=== PATIENT | female | born 1940 | race Caucasian/White ===

== ENCOUNTER 2016-09-05 06:49 | Inpatient (IN) | payer MEDICARE, OTHER ==
[2016-08-31 16:00] LABS: PROTIME (NOT ORD) 12.7 SEC (12.0-14.5)
[2016-08-31 16:01] LABS: PARTIAL THROMBO TIME 27.1 SEC (22.5-37.2)
[2016-08-31 16:03] LABS: BASOPHILS 0.5 %; BASOPHILS ABSOLUTE 0.03 10/3/uL (0.0-0.16); EOSINOPHILS ABSOLUTE 0.12 10/3/uL (0.0-0.53); HEMATOCRIT 39.6 % (36.0-48.0); HEMOGLOBIN 12.9 g/dL (12.0-16.0); IMMATURE GRANULOCYTES 0.2 %; IMMATURE GRANULOCYTES ABSOLUTE 0.01 10/3/uL (0.0-0.11); LYMPHOCYTES 23.5 %; LYMPHOCYTES ABSOLUTE 1.44 10/3/uL (0.67-4.30); MEAN CORPUS HGB CONC 32.6 g/dL (32.0-36.0); MEAN CORPUSCULAR HEMOGLOB 30.4 pg (26.0-34.0); MEAN CORPUSCULAR VOLUME 93.2 fL (80-100); MONOCYTES 10.4 %; MONOCYTES ABSOLUTE 0.64 10/3/uL (0.21-1.20); NEUTROPHILS 63.4 %; NEUTROPHILS ABSOLUTE 3.89 10/3/uL (2.02-8.40); PLATELET COUNT 250 10/3/uL (150-400); RED CELL COUNT 4.25 10/6/uL (4.0-5.6); WHITE BLOOD CELLS 6.1 10/3/uL (4.5-10.5)
[2016-08-31 16:04] LABS: MANUAL DIFF NO %
[2016-08-31 16:15] LABS: A/G RATIO 1.3 (0.7-1.9); ALBUMIN 3.9 G/DL (3.5-5.0); ALKALINE PHOSPHATASE 117 U/L (45-117); BUN (BLOOD UREA NITROGEN) 19 MG/DL (6-23); CALCIUM, SERUM 8.8 MG/DL (8.5-10.4); CEA 2.4 NG/ML; CHLORIDE, SERUM 108 MMOL/L (96-112); CO2 (CARBON DIOXIDE) 27 MMOL/L (24-34); CREATININE 0.71 MG/DL (0.55-1.02); GFR AFRICAN AMERICAN 96 ML/MIN (>=60); GFR NON AFRICAN AMERICAN 83 ML/MIN (>=60); GLUCOSE, SERUM 120 MG/DL (60-99); POTASSIUM, SERUM 3.9 MMOL/L (3.5-5.3); SGOT(AST) 20 U/L (5-40); SGPT(ALT) 24 U/L (5-65); SODIUM, SERUM 144 MMOL/L (135-148); TOTAL BILIRUBIN 0.3 MG/DL (0-1.2); TOTAL PROTEIN 6.9 G/DL (6.0-8.5)
[2016-08-31 16:17] LABS: ASCORBIC ACID (UR NOT ORDER) 20 (NEG); BILIRUBIN, URINE NEGATIVE (NEG); KETONE, URINE TRACE MG/DL (NEG); LEUKOCYTE ESTERASE(NOT OR LARGE (NEG); WBC (NOT ORDERED) (RFLEX) 64 (0-5)
--- NOTE | ~2016-09-05 | OP ---
Record Of Operation [facility] [address] [place]. [address] NAME: EBONIE BAZAN : 38 STATUS : ADM IN PAT#: [id number] AGE: 75 ADM/REG DATE : 09/05/16 MR#: [id number] REPORT SERV DATE: 09/05/16 DICTATED BY: DENISE FISHER JR. DATE: 09/05/16 REPORT STATUS : Draft TRANSCRIBED BY: MODL DATE: 09/05/16 DATE OF PROCEDURE: 09/05/2016 SURGEON: Denise Fisher M.D. WATER PURIFICATION CHEMIST: Emy Alvarez. PROCEDURE: Laparoscopic-assisted right colectomy with ileocolostomy. PREOPERATIVE DIAGNOSIS: Carcinoma of the colon. POSTOPERATIVE DIAGNOSIS: Carcinoma of the colon. ANESTHESIA: General. INDICATIONS: This patient had been found on screening colonoscopy to have neoplastic polyps in the proximal transverse colon. The more distal to this was excised and was suspicious in appearance and pathology confirmed carcinoma, incompletely resected. There was also a more proximal polyp on biopsy, it was a serrated adenoma. Exploration for resection of both areas was indicated for definitive treatment. FINDINGS: On laparoscopic exam of the abdomen, there was evidence of a very mobile right colon. There was no evidence of any peritoneal metastasis or other abnormality. There was blue ink staining of the transverse colon at the site. Colon was mobilized and then brought through a very small midline incision where an extended right colectomy was performed to encompass both of the area of the polyp. Examination of the specimen did show both ears contained within the specimen. The mesentery was somewhat attenuated but tissue was taken from the proximal ileocolic out to the colon. There was no evident adenopathy. Satisfactory stapled ileocolostomy was created. No other significant findings were encountered. DESCRIPTION OF PROCEDURE: With adequate general anesthesia, the patient was placed in a supine position. The abdomen was prepped and draped sterilely. Marcaine 0.5% was used for local infiltration. An infraumbilical incision was made. The dissection was carried down sharply through the subcutaneous tissues. The fascia and peritoneum were opened. The peritoneal cavity was entered. A balloon-tipped trocar was introduced. The abdomen was insufflated with CO2. The laparoscope was introduced with the above-noted findings. Under direct vision, a 5 mm trocar was placed in the right and the left abdomen. The LigaSure device was utilized to divide the gastrocolic omentum and the tissue at the hepatic flexure to mobilize the transverse colon and hepatic flexure region and also the right colon. Then the midline incision was enlarged slightly and this specimen was brought through the incision where sites were selected for revision of the ileum and the transverse colon with endoscopic EJ 75. The mesentery was then divided between clamps securing the major bleeders with ligatures of silk. Additionally taking some additional tissue from the proximal ileocolic area. Then a [id number] ileocolostomy was created with a EJ 75. The open end was closed with a EJ 60 and this was reinforced with sutures of 3-0 silk. Record Of Operation [address] [place]. [address] NAME: EBONIE BAZAN : 38 STATUS : ADM IN [facility]#: [id number] AGE: 75 ADM/REG DATE : 09/05/16 MR#: [id number] REPORT SERV DATE: 09/05/16 DICTATED BY: DENISE FISHER JR. DATE: 09/05/16 REPORT STATUS : Draft TRANSCRIBED BY: FROYLAN DATE: 09/05/16 Mesenteric defect was also closed with suture of 3-0 silk. The specimen was submitted to pathology as noted. Both specimens were placed back into the abdomen and then the midline incision was closed and the fascial layer with 0 PDS, subcutaneous Vicryl, and dermal Monocryl as were the other 2 trocar sites. Sterile dressings were applied. The patient left the operating room in satisfactory condition. ESTIMATED BLOOD LOSS: 10 mL. CAROLE/FROYLAN Denise Fisher Jr., M.D. / [id number] CC: Denise Fisher Jr., M.D.
--- NOTE | ~2016-09-05 | DS ---
Discharge Summary [facility] [id number] [place]. [address] NAME: EBONIE BAZAN : 38 STATUS : DIS IN PAT#: [id number] AGE: 75 ADM/REG DATE : 09/05/16 MR#: [id number] REPORT SERV DATE: 09/17/16 DICTATED BY: DENISE FISHER JR. DATE: 09/16/16 REPORT STATUS : Draft TRANSCRIBED BY: FROYLAN DATE: 09/16/16 Data Collection from hospitalization DISCHARGE DIAGNOSES: 1. Carcinoma of the colon. 2. Hypothyroidism. 3. Gastroesophageal reflux disease. 4. Osteoarthritis. 5. Former smoker. CONSULTATIONS: None. PROCEDURES PERFORMED: Laparoscopic-assisted right colectomy with ileocolostomy, 09/05/2016. PATHOLOGY: Right colon partial colectomy-invasive adenocarcinoma. Tumor site-mid transverse colon, size (maximal tumor dimension)-small residual 2 mm focus adjacent reparative changes from the previous biopsy. Histologic grade-moderately differentiated local extent-C1 tumor invades the submucosa. Lymphatic small vessel invasion-not identified. Venous large vessel invasion-not identified. Status of margins-negative lymph nodes-0/25 pericolic nodes involved (0/25). Treatment effects-no prior treatment. Tumor deposits-not identified. Perineural invasion-not identified. Histologic features of microsatellite instability-not identified. Immunohistochemistry for mismatch repair (MMR) protein: MSH2-normal expression. Positive nuclear staining. MSH6-normal expression, positive nuclear staining. MLH1-normal expiration, positive nuclear staining. PMS2-normal expression, positive nuclear staining. Comment-there was no evidence of loss of expression of mismatch, repair of proteins, and further genetic testing for Nelson syndrome was not recommended unless strong clinical suspicion persists. Macroscopic intactness of mesorectum-not applicable. Other findings- proximal transverse colon biopsy sites, she has no residual sessile serrated adenoma. Pathologic stage-1 (PT1-PN0). Additional mesenteric biopsy-0/1 node involved by tumor (0/1). DISCHARGE MEDICATIONS: Tylenol 650 mg every 8 hours as needed, Zyrtec 10 mg every day at bedtime, vitamin D 1000 units every morning, Flonase one spray nasally twice a day, Neurontin 300 mg every day at bedtime, Synthroid 75 mcg daily, Align probiotic one capsule daily, fish oil 1000 mg daily, Prilosec 20 mg twice a day, Zofran 4 mg every four to six hours as needed, Carafate 1 g before meals and at bedtime as needed, Ultram 50 mg every six hours as needed, Phazyme as instructed. CONDITION AT DISCHARGE: Stable. DISPOSITION: The patient was discharged home on a full liquid diet with activities as instructed. She would follow up with me, 09/16/2016. HOSPITAL COURSE: This is a 75-year-old female, who was found on screening colonoscopy to have neoplastic polyps in the proximal transverse colon. More distal to this was excised and was suspicious in appearance and pathology confirmed carcinoma incompletely resected. There was also a more proximal polyp on biopsy that was a serrated adenoma. Treatment options were discussed and it was elected to proceed with surgical intervention. She was Discharge Summary [address] [place]. [address] NAME: EBONIE BAZAN : 38 STATUS : DIS IN PAT#: [id number] AGE: 75 ADM/REG DATE : 09/05/16 MR#: [id number] REPORT SERV DATE: 09/17/16 DICTATED BY: DENISE FISHER JR. DATE: 09/16/16 REPORT STATUS : Draft TRANSCRIBED BY: FROYLAN DATE: 09/16/16 admitted to the hospital at this time for further evaluation and treatment. Upon admission, she was taken to the operating room, where she underwent the above-mentioned procedure. She tolerated this well and there were no complications. On postop day #1, she was stable. She was tolerating liquids. Her diet was going to be advanced. The Yoon catheter was removed. We encouraged her to increase her activity. Over the next couple of days, she continued to progress. She was tolerating full liquids. Pathology results were reviewed. Discharge planning was performed. On 09/09/2016, she was passing flatus. She remained stable. She was tolerating full liquids. Her abdomen was soft. Discharge instructions were given. Due to her improved and stable condition, she was discharged home with the above-stated instructions. Information collected by: Alejandra Be I submit the above information as my discharge summary. GUILLERMO/FROYLAN Denise Fisher Jr., M.D. / [id number] CC: Mckenna Smith Jr., M.D.
[~2016-09-05 06:49] MED LIST: 8 HOUR650 MG PO; ALIGN4 MG PO; CALTRA600D PO; CALTRAT600 PO; CELEBREX2 PO; FISH-EPA1000 MG PO; FLONASE NAS; HYDROCHLOROT12.5 MG PO; LEVOTHROID75 MCG PO; LEVOTHYROXIN75 MCG PO; LORT7 PO; LORTAB 5 PO; NEUR300 PO; NORCO1 TA2 PO; PHAZYME; PREV30 PO; PRILO PO; SUCR PO; SYN075 PO; ULTRAM50 PO; VITAMIN D1000 UNI1 PO; VITAMIN D31000 UNIT PO; ZYRTEC ALLGY10 MG PO
[2016-09-05 11:57] LABS: BASOPHILS 0.1 %; BASOPHILS ABSOLUTE 0.01 10/3/uL (0.0-0.16); EOSINOPHILS 0.1 %; EOSINOPHILS ABSOLUTE 0.01 10/3/uL (0.0-0.53); HEMATOCRIT 36.9 % (36.0-48.0); HEMOGLOBIN 12.3 g/dL (12.0-16.0); IMMATURE GRANULOCYTES 0.1 %; IMMATURE GRANULOCYTES ABSOLUTE 0.01 10/3/uL (0.0-0.11); LYMPHOCYTES 8.6 %; LYMPHOCYTES ABSOLUTE 0.73 10/3/uL (0.67-4.30); MANUAL DIFF NO %; MEAN CORPUS HGB CONC 33.3 g/dL (32.0-36.0); MEAN CORPUSCULAR HEMOGLOB 30.8 pg (26.0-34.0); MEAN CORPUSCULAR VOLUME 92.3 fL (80-100); MEAN PLATELET VOLUME 10.9 fL (9.2-13.0); MONOCYTES 1.8 %; MONOCYTES ABSOLUTE 0.15 10/3/uL (0.21-1.20); NEUTROPHILS 89.3 %; NEUTROPHILS ABSOLUTE 7.53 10/3/uL (2.02-8.40); PLATELET COUNT 202 10/3/uL (150-400); RBC DISTRIBUTION WIDTH 13.5 % (12.0-16.0); WHITE BLOOD CELLS 8.4 10/3/uL (4.5-10.5)
[2016-09-05 12:09] LABS: CALCIUM, SERUM 8.2 MG/DL (8.5-10.4); CHLORIDE, SERUM 105 MMOL/L (96-112); CO2 (CARBON DIOXIDE) 25 MMOL/L (24-34); CREATININE 0.69 MG/DL (0.55-1.02); GFR AFRICAN AMERICAN 98 ML/MIN (>=60); GFR NON AFRICAN AMERICAN 85 ML/MIN (>=60); GLUCOSE, SERUM 137 MG/DL (60-99); POTASSIUM, SERUM 3.6 MMOL/L (3.5-5.3); SODIUM, SERUM 141 MMOL/L (135-148)
[2016-09-05 12:11] LABS: BUN (BLOOD UREA NITROGEN) 15 MG/DL (6-23)
[2016-09-06 07:24] LABS: BASOPHILS 0 %; EOSINOPHILS 0 %; HEMATOCRIT 36.1 % (36.0-48.0); HEMOGLOBIN 12.2 g/dL (12.0-16.0); IMMATURE GRANULOCYTES 0.2 %; IMMATURE GRANULOCYTES ABSOLUTE 0.02 10/3/uL (0.0-0.11); MEAN CORPUS HGB CONC 33.8 g/dL (32.0-36.0); MEAN CORPUSCULAR HEMOGLOB 30.7 pg (26.0-34.0); MEAN CORPUSCULAR VOLUME 90.9 fL (80-100); MEAN PLATELET VOLUME 11.2 fL (9.2-13.0); MONOCYTES 7.1 %; MONOCYTES ABSOLUTE 0.92 10/3/uL (0.21-1.20); NEUTROPHILS 85.7 %; NEUTROPHILS ABSOLUTE 11.05 10/3/uL (2.02-8.40); PLATELET COUNT 210 10/3/uL (150-400); RBC DISTRIBUTION WIDTH 13.7 % (12.0-16.0); RED CELL COUNT 3.97 10/6/uL (4.0-5.6)
[2016-09-06 07:25] LABS: MANUAL DIFF NO %; WHITE BLOOD CELLS 12.9 10/3/uL (4.5-10.5)
[2016-09-06 07:37] LABS: BUN (BLOOD UREA NITROGEN) 14 MG/DL (6-23); CALCIUM, SERUM 8.3 MG/DL (8.5-10.4); CHLORIDE, SERUM 103 MMOL/L (96-112); CO2 (CARBON DIOXIDE) 26 MMOL/L (24-34); CREATININE 0.57 MG/DL (0.55-1.02); GFR AFRICAN AMERICAN 104 ML/MIN (>=60); GFR NON AFRICAN AMERICAN 90 ML/MIN (>=60); GLUCOSE, SERUM 134 MG/DL (60-99); SODIUM, SERUM 139 MMOL/L (135-148)
[2016-09-07 04:56] LABS: BASOPHILS 0.1 %; BASOPHILS ABSOLUTE 0.01 10/3/uL (0.0-0.16); EOSINOPHILS 0.5 %; EOSINOPHILS ABSOLUTE 0.04 10/3/uL (0.0-0.53); HEMATOCRIT 33.4 % (36.0-48.0); HEMOGLOBIN 11.1 g/dL (12.0-16.0); IMMATURE GRANULOCYTES 0.3 %; IMMATURE GRANULOCYTES ABSOLUTE 0.03 10/3/uL (0.0-0.11); LYMPHOCYTES 14.6 %; LYMPHOCYTES ABSOLUTE 1.29 10/3/uL (0.67-4.30); MANUAL DIFF NO %; MEAN CORPUS HGB CONC 33.2 g/dL (32.0-36.0); MEAN CORPUSCULAR HEMOGLOB 30.9 pg (26.0-34.0); MEAN PLATELET VOLUME 11.4 fL (9.2-13.0); MONOCYTES 7.9 %; NEUTROPHILS 76.6 %; NEUTROPHILS ABSOLUTE 6.74 10/3/uL (2.02-8.40); PLATELET COUNT 191 10/3/uL (150-400); RBC DISTRIBUTION WIDTH 13.8 % (12.0-16.0); RED CELL COUNT 3.59 10/6/uL (4.0-5.6); WHITE BLOOD CELLS 8.8 10/3/uL (4.5-10.5)
[2016-09-07 05:26] LABS: CALCIUM, SERUM 8.1 MG/DL (8.5-10.4); CHLORIDE, SERUM 107 MMOL/L (96-112); CO2 (CARBON DIOXIDE) 24 MMOL/L (24-34); CREATININE 0.54 MG/DL (0.55-1.02); GFR AFRICAN AMERICAN 106 ML/MIN (>=60); GFR NON AFRICAN AMERICAN 92 ML/MIN (>=60); GLUCOSE, SERUM 108 MG/DL (60-99); POTASSIUM, SERUM 3.9 MMOL/L (3.5-5.3); SODIUM, SERUM 140 MMOL/L (135-148)
[2016-09-07 05:29] LABS: BUN (BLOOD UREA NITROGEN) 9 MG/DL (6-23)
[2016-09-08 04:19] LABS: BASOPHILS 0.3 %; BASOPHILS ABSOLUTE 0.02 10/3/uL (0.0-0.16); EOSINOPHILS 1.7 %; EOSINOPHILS ABSOLUTE 0.13 10/3/uL (0.0-0.53); HEMOGLOBIN 12.1 g/dL (12.0-16.0); IMMATURE GRANULOCYTES 0.3 %; IMMATURE GRANULOCYTES ABSOLUTE 0.02 10/3/uL (0.0-0.11); LYMPHOCYTES 20.3 %; LYMPHOCYTES ABSOLUTE 1.56 10/3/uL (0.67-4.30); MEAN CORPUS HGB CONC 32.7 g/dL (32.0-36.0); MEAN CORPUSCULAR HEMOGLOB 30.6 pg (26.0-34.0); MEAN CORPUSCULAR VOLUME 93.4 fL (80-100); MEAN PLATELET VOLUME 11.9 fL (9.2-13.0); MONOCYTES 7.9 %; MONOCYTES ABSOLUTE 0.61 10/3/uL (0.21-1.20); NEUTROPHILS 69.5 %; NEUTROPHILS ABSOLUTE 5.35 10/3/uL (2.02-8.40); PLATELET COUNT 224 10/3/uL (150-400); RBC DISTRIBUTION WIDTH 13.7 % (12.0-16.0); RED CELL COUNT 3.96 10/6/uL (4.0-5.6); WHITE BLOOD CELLS 7.7 10/3/uL (4.5-10.5)
[2016-09-08 04:21] LABS: MANUAL DIFF NO %
[2016-09-08 04:34] LABS: BUN (BLOOD UREA NITROGEN) 7 MG/DL (6-23); CALCIUM, SERUM 8.5 MG/DL (8.5-10.4); CHLORIDE, SERUM 105 MMOL/L (96-112); CO2 (CARBON DIOXIDE) 28 MMOL/L (24-34); CREATININE 0.61 MG/DL (0.55-1.02); GFR AFRICAN AMERICAN 102 ML/MIN (>=60); GFR NON AFRICAN AMERICAN 88 ML/MIN (>=60); POTASSIUM, SERUM 3.8 MMOL/L (3.5-5.3); SODIUM, SERUM 142 MMOL/L (135-148)
[2016-09-08 04:35] LABS: GLUCOSE, SERUM 86 MG/DL (60-99)
[2016-09-09] MEDS ORDERED: ZOFRAN4 PO (09:41)
[2016-09-09] MEDS ORDERED: ULTRAM50 PO (09:41)
== END 2016-09-09 11:25 | disposition home or self-care (01) | DRG 331 ==
LOC: SDC/OF 06:49 → PACU 11:27 → 5SO 14:53
PROVIDERS: Specialist
PROC: 0D1K0Z4 Bypass Ascending Colon to Cutaneous, Open Approach (ICD-10-PCS; 2016-09-05)
PROC: 0DBL0ZZ Excision of Transverse Colon, Open Approach (ICD-10-PCS; principal; 2016-09-05 08:45)
DX: C18.4 Malignant neoplasm of transverse colon (principal); E03.9 Hypothyroidism, unspecified; Z80.0 Family history of malignant neoplasm of digestive organs; Z80.42 Family history of malignant neoplasm of prostate; Z87.891 Personal history of nicotine dependence; K21.9 Gastro-esophageal reflux disease without esophagitis
CPT/HCPCS: 36415; 71020; 80048; 80053; 81001; 82330; 82378; 82962; 83735; 84100; 85025; 85610; 85730; 86850; 86900; 86901; 87077; 87086; 87186; 88305; 88309; 88341; 88342; 93005; A9270-GY; C9113; J0690; J2250; J2370; J2405; J2710; J2795; J3010